=== PATIENT | male | born 1945 | race Caucasian/White ===

== ENCOUNTER 2017-01-15 09:11 | Emergency (ER) | payer MEDICARE, OTHER ==
[2017-01-15 10:36] VITALS: BP 141/87
--- NOTE | 2017-01-15 11:11 | UC ---
Back Pain HPI - HPI Summary HPI Summary: three days ago, pt got up out of his recliner after trying to imrpove his neck pain with a heating pad. when he did, he felt severe upper back pain b/t his scapula and his spine. over the past 2 days his sx have continued to worsen. currently a 9/10 stabbing twisting tearing sensation. no radiation, n/w/t. worse with movement. alleviated by laying still in suppine position. pt also reports kay and nausea since onset. denies dizziness, sob, vomiting. - History of Current Complaint Chief Complaint: UCUpperExtremity Stated Complaint: LEFT SHOULDER AND BACK PAIN Time Seen by Provider: 01/15/17 10:38 Hx Obtained From: Patient, Family/Relief Master Onset/Duration: Sudden Onset, Lasting Days, Still Present, Worse Since - progressively Timing: Constant Severity Initially: Severe Severity Currently: Severe Pain Intensity: 9 Character: Sharp - twisting, tearing Aggravating Factor(s): Movement Alleviating Factor(s): Rest, Position Associated Signs And Symptoms: Negative: Swelling, Redness, Bruising, Fever, Weakness, Numbness, Tingling, Abdominal Pain, Flank Pain - Allergies/Home Medications Allergies/Adverse Reactions: Allergies Allergy/AdvReac Type Severity Reaction Status Date / Time No Known Allergies Allergy Verified 01/15/17 10:30 Home Medications: Home Medications HYDROcodo/Acetam5/325MG PREPAK [HYDROcodone/ACETAMIN 5-325 MG*] 1 tab PO ONCE [History Confirmed 01/15/17] PMH/Surg Hx/FS Hx/Imm Hx Endocrine History: Dyslipidemia Cardiovascular History: Hypertension - Surgical History Surgical History: Yes Surgery Procedure, Year, and Place: Right Shoulder Replacement, Bilateral TKA - Family History Known Family History: Positive: Cardiac Disease, Hypertension - Social History Lives: With Family Alcohol Use: 2 - 2 1/2 drinks daily Substance Use Type: None Smoking Status (MU): Former Smoker Amount Used/How Often: 2- 2 1/2 PPD x 20 Years When Did the Patient Quit Smoking/Using Tobacco: 1983 - Immunization History Most Recent Influenza Vaccination: November 2016 Review of Systems Constitutional: Negative Skin: Negative Eyes: Negative Respiratory: Negative Cardiovascular: Negative Gastrointestinal: Nausea Musculoskeletal: Other: - back and neck pain Neurological: Headache All Other Systems Reviewed And Are Negative: Yes Physical Exam Triage Information Reviewed: Yes Appearance: Well-Appearing, Well-Nourished, Pain Distress - mild to mod Vital Signs: Initial Vital Signs Temp 98.4 F 01/15/17 10:27 Pulse 66 01/15/17 10:27 Resp 16 01/15/17 10:27 BP 141/87 01/15/17 10:27 Pulse Ox 97 01/15/17 10:27 Vital Signs Reviewed: Yes Eyes: Positive: Conjunctiva Clear. Negative: Discharge ENT: Positive: Hearing grossly normal. Negative: Muffled voice, Hoarse voice Neck: Positive: Supple Respiratory: Positive: Lungs clear, Normal breath sounds, No respiratory distress, No accessory muscle use Cardiovascular: Positive: RRR, No Murmur Musculoskeletal: Positive: Other: - no chest wall tenderness Neurological Exam: Normal Neurological: Positive: Alert, Muscle Tone Normal Psychological: Positive: Normal Response To Family, Age Appropriate Behavior Skin Exam: Normal Back Pain Course/Dx - Differential Dx/Diagnosis Differential Diagnosis/HQI/PQRI: Aneurysm, Strain, Other - muscle spasm, disection Provider Diagnoses: thoracic pain Discharge - Discharge Plan Condition: Stable Disposition: TRANS HIGHER LVL OF CARE FAC Referrals: Enrique Bazzi MD [Primary Care Provider] -
== END 2017-01-15 12:07 | disposition short-term general hospital (02) ==
LOC: UCCORT 09:11
DX: M54.6 Pain in thoracic spine (principal); R51 Headache; R11.0 Nausea; E78.5 Hyperlipidemia, unspecified; I10 Essential (primary) hypertension; Z96.611 Presence of right artificial shoulder joint; Z87.891 Personal history of nicotine dependence
CPT/HCPCS: 93005; 99213; G0463